=== PATIENT | female | born 1990 | race Two or more races ===

== ENCOUNTER 2020-07-01 07:14 | Outpatient (CLI) | payer OTHER | END 2020-07-01 07:20 | disposition home or self-care (01) | LOC: LAB 07:14 | PROVIDERS: ATTEND Ophthalmology | DX: D69.8 Other specified hemorrhagic conditions (principal); Z20.828 Contact with and (suspected) exposure to other viral communicable diseases; E11.39 Type 2 diabetes mellitus with other diabetic ophthalmic complication; I15.8 Other secondary hypertension; D68.32 Hemorrhagic disorder due to extrinsic circulating anticoagulants; I10 Essential (primary) hypertension ==

== ENCOUNTER 2023-01-01 12:17 | Outpatient (CLI) | payer OTHER | END 2023-01-01 12:23 | disposition home or self-care (01) | LOC: SONOGRAMA 12:17 | PROVIDERS: ATTEND General Practice | DX: E03.9 Hypothyroidism, unspecified (principal) ==